=== PATIENT | female | born 1985 | race Caucasian/White ===

== ENCOUNTER 2019-03-01 14:28 | Outpatient (CLI) | payer BC ==
--- NOTE | 2019-03-01 15:38 | ULT ---
ULTRASOUND PELVIC TRANSVAGINAL: 03/01/19 HISTORY: Dysmenorrhea. COMPARISON: None. FINDINGS: Real time canseco scale and color spectral analysis of the pelvis was performed transabdominal and trans vaginal approach. Uterus measures 8.2 x 4.5 x 5.1 cm and retroverted. The endometrial thickness is 1.3 cm. Both ovaries have adequate vascular flow with normal size and appearance. The uterine fundus involving a portion of the endometrial cavity is a 1.9 cm hypoechoic structure. Th is has the appearance of a submucosal fibroid. IMPRESSION: Findings of a submucosal 1.9 cm uterine fibroid near the fundus versus less likely a sessile polyp. T his may be the source of the patient's symptomatology, and direct visualization may be helpful. POS: [facility]
== END 2019-03-01 14:29 | disposition home or self-care (01) ==
LOC: BICULT 14:28
DX: N94.6 Dysmenorrhea, unspecified (principal); D25.0 Submucous leiomyoma of uterus
CPT/HCPCS: 76856

== ENCOUNTER 2022-06-09 15:11 | Outpatient (CLI) | payer OTHER | END 2022-06-09 15:12 | disposition home or self-care (01) | LOC: BICULT 15:11 | PROVIDERS: ATTEND Nurse Practitioner Family | DX: D25.9 Leiomyoma of uterus, unspecified (principal) | CPT/HCPCS: 76856; 93976 ==